=== PATIENT | female | born 1960 | race Caucasian/White ===

== ENCOUNTER 2019-04-22 06:57 | Day surgery (SDC) | payer OTHER ==
[~2019-04-22] VITALS: Ht 160 cm; Wt 126.5 kg
== END 2019-04-22 09:00 | disposition home or self-care (01) ==
LOC: ORSCSDS 06:57
PROVIDERS: Internal Medicine Gastroenterology
PROC: 0DJD8ZZ Inspection of Lower Intestinal Tract, Via Natural or Artificial Opening Endoscopic (ICD-10-PCS; principal; 2019-04-22 08:30)
DX: Z12.11 Encounter for screening for malignant neoplasm of colon (principal); Z86.010 Personal history of colon polyps; Z80.0 Family history of malignant neoplasm of digestive organs; K64.8 Other hemorrhoids; Z83.71 Family history of colonic polyps
CPT/HCPCS: J0330; J0461; J2001; J2405; J2704; J7120

== ENCOUNTER 2020-11-29 08:44 | Day surgery (SDC) | payer OTHER ==
[~2020-11-29] VITALS: Ht 160 cm; Wt 61.2 kg
[2020-11-29] MEDS ORDERED: BACILLUS COAGULANS (09:40)
[2020-11-29] MEDS ORDERED: ERGO400 PO (09:40)
[2020-11-29] MEDS ORDERED: VITAMIN B-1250 MCG PO (09:41)
[2020-11-29] MEDS ORDERED: PROTONIX PO (09:42)
[2020-11-29] MEDS ORDERED: ZINC15 PO (09:42)
--- NOTE | 2020-11-29 09:43 | NUR ---
Ambulatory in Day Surgery History, Chart, Medications and Allergies reviewed before start of procedure. Lungs clear T/O to Auscultation. Patient confirms NPO status and agrees with scheduled surgery. Pre-Op teaching done. Pt verbalizes understanding. Patient States Post-Procedure ride home has been arranged.
--- NOTE | 2020-11-29 10:30 | NUR ---
11/29/20 1030 Geetha Butts History, Chart, Medications and Allergies reviewed before start of procedure. Patient confirms NPO status and agrees with scheduled surgery. 3-LEAD EKG REVIEWED WITH PHYSICIAN PRIOR TO START OF PROCEDURE. MONITOR INTACT WITH CONTINUOUS PULSE OXIMETRY AND INTERMITTENT BP. PATIENT DETERMINED TO BE ASA APPROPRIATE FOR PROPOFOL SEDATION PRIOR TO START OF PROCEDURE BY . Bite Block Placed & REMOVED AT END OF CASE.
--- NOTE | 2020-11-29 11:44 | NUR ---
Patient up to Ambulate independently. Gait steady. Discharge instructions reviewed with patient. Patient verbalizes understanding. Copy given to patient to take home. Patient States Post-Procedure ride home has been arranged. Discharged via wheelchair to private car for ride home.
== END 2020-11-29 11:47 | disposition home or self-care (01) ==
LOC: ORSCMMR 08:44 → ORD 10:15 → ORSCMMR 11:47
PROVIDERS: Surgery
PROC: 0DB78ZX Excision of Stomach, Pylorus, Via Natural or Artificial Opening Endoscopic, Diagnostic (ICD-10-PCS; principal; 2020-11-29 10:15)
PROC: 0DB48ZX Excision of Esophagogastric Junction, Via Natural or Artificial Opening Endoscopic, Diagnostic (ICD-10-PCS; principal; 2020-11-29 10:15)
DX: K21.9 Gastro-esophageal reflux disease without esophagitis (principal); R10.13 Epigastric pain; E78.5 Hyperlipidemia, unspecified; Z79.899 Other long term (current) drug therapy
CPT/HCPCS: 88305; 88312; 88342; J2704; J7120

== ENCOUNTER → 2022-06-14 | Outpatient (CLI) | payer OTHER ==
[~2022-06-14] MED LIST: BACILLUS COAGULANS; ERGO400 PO; PROTONIX PO; VITAMIN B-1250 MCG PO; ZINC15 PO
== END | disposition home or self-care (01) ==
LOC: LAB SHORT 09:40 → LAB 09:40
DX: R82.998 Other abnormal findings in urine (principal)
CPT/HCPCS: 87086

== ENCOUNTER → 2023-01-16 | Outpatient (CLI) | payer BC ==
[2023-01-17 11:38] LABS: Candida species (DNA Probe) Negative (NEGATIVE); G. vaginalis (DNA Probe) Negative (NEGATIVE); T. vaginalis (DNA Probe) Negative (NEGATIVE)
== END | disposition home or self-care (01) ==
LOC: LAB 14:49 → LAB SHORT 14:49
PROVIDERS: Family Medicine
DX: B37.31 Acute candidiasis of vulva and vagina (principal)
CPT/HCPCS: 87077; 87086; 87186; 87480; 87510; 87660

== ENCOUNTER → 2023-02-08 | Outpatient (CLI) | payer BC ==
[2023-02-09 11:51] LABS: Candida species (DNA Probe) Negative (NEGATIVE); G. vaginalis (DNA Probe) Negative (NEGATIVE); T. vaginalis (DNA Probe) Positive (NEGATIVE)
== END ==
LOC: LAB 14:07 → LAB SHORT 14:07
PROVIDERS: Family Medicine
DX: R30.0 Dysuria (principal); N76.0 Acute vaginitis
CPT/HCPCS: 87086; 87480; 87510; 87660